=== PATIENT | male | born 1955 | race Caucasian/White ===

== ENCOUNTER → 2022-07-29 | Outpatient (CLI) | payer OTHER ==
[~2022-07-29] MED LIST: ASPI325 PO; ATEN50 PO; BUPR100ER PO; ESCI10 PO; FISH1000 PO; MULVITMIND PO; VITAMIN B-12 SL
[2022-07-29 11:46] LABS: BASOPHILS ABSOLUTE AUTO 0.06 K/mm3 (0.00-0.23); BASOPHILS PERCENT AUTO 1 % (0-2); EOSINOPHILS ABSOLUTE AUTO 0.15 K/mm3 (0.00-0.68); EOSINOPHILS PERCENT AUTO 3 % (0-6); Hematocrit 49.6 % (37.0-53.0); Hemoglobin 17.3 g/dL (13.5-17.5); IMMATURE GRAN ABSOLUTE AUTO 0.03 K/mm3 (0.00-0.10); IMMATURE GRAN PERCENT AUTO 1 % (0-1); LYMPHOCYTES PERCENT AUTO 28 % (21-46); MONOCYTES ABSOLUTE AUTO 0.42 K/mm3 (0.16-1.47); MONOCYTES PERCENT AUTO 7 % (4-13); Mean Corpuscular HGB 29.7 pg (26.0-34.0); Mean Corpuscular HGB Conc 34.9 g/dL (31.5-36.5); Mean Corpuscular Volume 85 fL (80-100); Mean Platelet Volume 9.7 fL (9.1-12.4); NEUTROPHILS ABSOLUTE AUTO 3.72 K/mm3 (1.96-9.15); NEUTROPHILS PERCENT AUTO 61 % (41-73); Platelet Count 206 K/mm3 (150-400); RDW Coefficient Variation 13.3 % (11.7-14.2); RDW Standard Deviation 41.3 fL (35.1-46.3); Red Blood Cell Count 5.83 M/mm3 (4.30-5.90); White Blood Cell Count 6.08 K/mm3 (4.00-11.30)
[2022-07-29 11:56] LABS: Albumin/Globulin Ratio 1.3 (0.8-1.8); Bilirubin, Total 0.6 mg/dL (0.1-1.0); Bun/Creatinine Ratio 11.2 (12.0-20.0); Calcium, Blood 9.7 mg/dL (8.5-10.1); Creatinine, Blood 0.98 mg/dL (0.60-1.20); Globulin, Blood 3.2 g/dL (2.2-4.0); Potassium, Blood 4.6 mmol/L (3.5-5.5); Total Protein, Blood 7.2 g/dL (6.4-8.2)
== END | disposition home or self-care (01) ==
LOC: LAB SHORT 11:40 → LAB 11:40
PROVIDERS: Physician Assistant Surgical
DX: R06.00 Dyspnea, unspecified (principal)
CPT/HCPCS: 80053; 83880; 85025

== ENCOUNTER 2022-12-29 11:02 | Inpatient (IN) | payer OTHER, MEDICARE ==
[2022-12-29] VITALS (11 sets, daily range): BP systolic 106–131; BP diastolic 67–95
[~2022-12-29] VITALS: Ht 185.4 cm; Wt 101.4 kg
[2022-12-29 11:41] LABS: BASOPHILS ABSOLUTE AUTO 0.04 K/mm3 (0.00-0.23); BASOPHILS PERCENT AUTO 1 % (0-2); EOSINOPHILS ABSOLUTE AUTO 0.08 K/mm3 (0.00-0.68); EOSINOPHILS PERCENT AUTO 2 % (0-6); Hematocrit 45.7 % (37.0-53.0); IMMATURE GRAN ABSOLUTE AUTO 0.07 K/mm3 (0.00-0.10); IMMATURE GRAN PERCENT AUTO 1 % (0-1); LYMPHOCYTES ABSOLUTE AUTO 1.01 K/mm3 (0.84-5.20); LYMPHOCYTES PERCENT AUTO 18 % (21-46); MONOCYTES ABSOLUTE AUTO 0.58 K/mm3 (0.16-1.47); MONOCYTES PERCENT AUTO 11 % (4-13); Mean Corpuscular HGB 26.6 pg (26.0-34.0); Mean Corpuscular HGB Conc 32.8 g/dL (31.5-36.5); Mean Corpuscular Volume 81 fL (80-100); Mean Platelet Volume 9.3 fL (9.1-12.4); NEUTROPHILS ABSOLUTE AUTO 3.71 K/mm3 (1.96-9.15); NEUTROPHILS PERCENT AUTO 68 % (41-73); Platelet Count 380 K/mm3 (150-400); RDW Coefficient Variation 14.3 % (11.7-14.2); RDW Standard Deviation 41.8 fL (35.1-46.3); Red Blood Cell Count 5.64 M/mm3 (4.30-5.90); White Blood Cell Count 5.49 K/mm3 (4.00-11.30)
[2022-12-29 12:44] LABS: Albumin, Blood 2.7 g/dL (3.4-5.0); Albumin/Globulin Ratio 0.6 (0.8-1.8); Bilirubin, Total 0.4 mg/dL (0.1-1.0); Bun/Creatinine Ratio 21.3 (12.0-20.0); Calcium, Blood 9.5 mg/dL (8.5-10.1); Creatinine, Blood 0.8 mg/dL (0.60-1.20); Globulin, Blood 4.2 g/dL (2.2-4.0); Potassium, Blood 4.4 mmol/L (3.5-5.5); Total Protein, Blood 6.9 g/dL (6.4-8.2)
[2022-12-29] MEDS ORDERED: ATOR10 PO (15:26)
[2022-12-29] MEDS ORDERED: Cyclobenzaprine10 MG PO (15:27)
[2022-12-29] MEDS ORDERED: DICLOFENAC SOD100 GM TOP (15:27)
[2022-12-29] MEDS ORDERED: FARXIGA10 MG PO (15:28)
[2022-12-29] MEDS ORDERED: GLIP10ER PO (15:28)
[2022-12-29] MEDS ORDERED: FENO160 PO (15:28)
[2022-12-29] MEDS ORDERED: METF500 PO (15:29)
[2022-12-29] MEDS ORDERED: LOSA25 PO (15:29)
[2022-12-29] MEDS ORDERED: TRULICITY4.5 MG/0.5 SC (15:30)
[2022-12-29] MEDS ORDERED: TOPROL XL200 MG PO (15:30)
[2022-12-29] MEDS ORDERED: XARELTO20 MG PO (15:30)
[2022-12-29] MEDS ORDERED: DULO60 PO (15:42)
--- NOTE | 2022-12-29 16:27 | NUR ---
PATIENT ARRIVES TO PCU AT 1600, ABLE TO STAND AND TRANSFER TO BED. PERRLA, GLASSES AT BEDSIDE. DENIES HEADACHE/VISION CHANGES. DENIES NUMBNESS/TINGLING. IND AT BASELINE. SBA TO BATHROOM. TELE SHOWING AFIB WITH HR 120-130'S. AMIO BOLUS COMPLETED UPON TRANSFER AND AMIO GTT STARTED ON PCU UNIT. BP STABLE WITH SBP 130'S. DENIES CHEST PAIN/PRESSURE/PALPITATIONS. PATIENT STATES HE LIVES IN AFIB, TAKES PO XARELTO AT HOME. HOME MED REC COMPLETE. PPP. ON ROOM AIR SATING 92-93%. LUNGS SOUNDING CLEAR AND DIM IN BASES. DENIES SOB/COUGH. EVEN AND UNLABORED RESPIRATIONS. PATIENT WEARS CPAP AT HOME. BOWEL TONES PRESENT. DENIES ABDOMINAL PAIN/NAUSEA. DENIES ISSUES WITH VOIDING. DRINKING WATER AT THIS TIME. SKIN OVERALL C/D/I. ORIENTED TO PCU AND CALL LIGHT. PATIENT DENIES NEEDS AT THIS TIME. DR. PETERSON NOTIFIED OF PATIENT ARRIVAL TO PCU.
--- NOTE | 2022-12-29 18:06 | NUR ---
SHIFT SUMMARY: PATIENT REMAINS IN AFIB WITH HR 110-130'S. AMIO GTT INFUSING PER EMAR. DENIES CHEST PAIN/PRESSURE/PALPITATIONS. REMAINS ON ROOM AIR. EATING AND VOIDING WNL. VITAL SIGNS STABLE. PATIENT EATING DINNER AT THIS TIME. COMPLAINS OF 5/10 CHRONIC BACK PAIN, RELIEVED WITH IV TORDAL. CALL LIGHT IN REACH. DENIES NEEDS AT THIS TIME.
--- NOTE | 2022-12-29 20:54 | NUR ---
ASSUMPTION OF CARE THIS RN ASSUMED CARE OF PATIENT AT 1900. PT A&O X4. ABLE TO MAKE NEEDS KNOWN. DENIES CHEST PAIN/PRESSURE AND SOB. AFIB WITH HR 120'S AT REST. AMIO GTT INFUSING PER EMAR. PT DENIED SOB BUT THIS RN NOTED PT ON RA WITH SPO2 85-88%. PT PLACED ON 2L VIA NC. PT REFUSED HOSPITAL CPAP AND STATES THAT HIS FRIEND WILL BRING HOME CPAP TOMORROW ALONG WITH HIS HOME MEDS. PT'S SPO2 92-94% ON 2L. BP STABLE. AFEBRILE. BED IN LOWEST POSITION AND CALL LIGHT WITHIN REACH.
[2022-12-30 03:00] VITALS: BP 114/90
[2022-12-30 03:58] LABS: BASOPHILS ABSOLUTE AUTO 0.04 K/mm3 (0.00-0.23); BASOPHILS PERCENT AUTO 1 % (0-2); EOSINOPHILS PERCENT AUTO 2 % (0-6); Hematocrit 42.8 % (37.0-53.0); Hemoglobin 13.8 g/dL (13.5-17.5); IMMATURE GRAN ABSOLUTE AUTO 0.09 K/mm3 (0.00-0.10); IMMATURE GRAN PERCENT AUTO 1 % (0-1); LYMPHOCYTES ABSOLUTE AUTO 0.91 K/mm3 (0.84-5.20); LYMPHOCYTES PERCENT AUTO 14 % (21-46); MONOCYTES ABSOLUTE AUTO 0.73 K/mm3 (0.16-1.47); MONOCYTES PERCENT AUTO 12 % (4-13); Mean Corpuscular HGB 26.1 pg (26.0-34.0); Mean Corpuscular HGB Conc 32.2 g/dL (31.5-36.5); Mean Corpuscular Volume 81 fL (80-100); Mean Platelet Volume 9.4 fL (9.1-12.4); NEUTROPHILS PERCENT AUTO 71 % (41-73); Platelet Count 316 K/mm3 (150-400); RDW Coefficient Variation 14.3 % (11.7-14.2); RDW Standard Deviation 41.4 fL (35.1-46.3); Red Blood Cell Count 5.29 M/mm3 (4.30-5.90); White Blood Cell Count 6.37 K/mm3 (4.00-11.30)
[2022-12-30 04:19] LABS: International Normalized Ratio 1.16; Prothrombin Time Results 12.1 Sec (9.7-11.5)
[2022-12-30 04:57] LABS: Albumin, Blood 2.5 g/dL (3.4-5.0); Albumin/Globulin Ratio 0.6 (0.8-1.8); Bilirubin, Total 0.5 mg/dL (0.1-1.0); Bun/Creatinine Ratio 22.8 (12.0-20.0); Calcium, Blood 9.1 mg/dL (8.5-10.1); Creatinine, Blood 0.75 mg/dL (0.60-1.20); Globulin, Blood 3.9 g/dL (2.2-4.0); Phosphorus, Blood 4.5 mg/dL (2.5-4.9); Potassium, Blood 3.9 mmol/L (3.5-5.5); Total Protein, Blood 6.4 g/dL (6.4-8.2)
--- NOTE | 2022-12-30 05:18 | NUR ---
SHIFT SUMMARY SEE PREVIOUS NOTE AND ASSESSMENT. PT A&O X4. ABLE TO MAKE NEEDS KNOWN. INDEPENDENT/SBA WITH ADL'S. PT CONTINUES TO BE IN AFIB WITH HR 110-130'S AT REST. AMIO GTT INFUSING PER EMAR. BP STABLE. AFEBRILE. ON 2L VIA NC WITH SPO2 >90%. BED IN LOWEST POSITION AND CALL LIGHT WITHIN REACH. THIS RN WILL REPORT TO ONCOMING DAYSHIFT RN.
[2022-12-30 07:57] VITALS: BP 129/85
[2022-12-30 11:47] VITALS: BP 119/81
[2022-12-30 16:04] VITALS: BP 120/87
--- NOTE | 2022-12-30 17:04 | NUR ---
SHIFT SUMMARY: PT ALERT AND ORIENTED X4, ABLE TO FOLLOW COMMANDS AND MAKE NEEDS KNOWN. COOPERATIVE WITH CARE. STRENGTH EQUAL BILATERALLY. BP STABLE. HR REMAINS AFIB 110'S. AMIO DRIP COMPLETED @1630, STARTED ON PO AMIO THIS AM, TOLERATING WELL. PT DENIES CP/PRESSURE. STATES SHORTNESS OF BREATH WITH EXCERTION. PULSES STRONG AND EQUAL THROUGHOUT. AFEBRILE. PT ON RA THROUGHOUT THIS SHIFT, SPO2 >98%. RESPIRATIONS EVEN AND UNLABORED AT REST. CBG RANGED 150-220, COVERED PER EMAR. MEDICATED X2 FOR CHRONIC HIP PAIN. PT ABLE TO SHOWER THIS AFTERNOON. BED IN LOW, CALL LIGHT IN REACH, WILL REPORT TO ONCOMING RN.
[2022-12-30 19:53] VITALS: BP 116/71
[2022-12-30 23:24] VITALS: BP 104/69
[2022-12-31 04:09] LABS: BASOPHILS ABSOLUTE AUTO 0.04 K/mm3 (0.00-0.23); BASOPHILS PERCENT AUTO 1 % (0-2); EOSINOPHILS ABSOLUTE AUTO 0.09 K/mm3 (0.00-0.68); EOSINOPHILS PERCENT AUTO 2 % (0-6); Hemoglobin 13.9 g/dL (13.5-17.5); IMMATURE GRAN ABSOLUTE AUTO 0.07 K/mm3 (0.00-0.10); IMMATURE GRAN PERCENT AUTO 1 % (0-1); LYMPHOCYTES ABSOLUTE AUTO 0.84 K/mm3 (0.84-5.20); LYMPHOCYTES PERCENT AUTO 15 % (21-46); MONOCYTES ABSOLUTE AUTO 0.69 K/mm3 (0.16-1.47); MONOCYTES PERCENT AUTO 12 % (4-13); Mean Corpuscular HGB 26.7 pg (26.0-34.0); Mean Corpuscular HGB Conc 33.1 g/dL (31.5-36.5); Mean Corpuscular Volume 81 fL (80-100); Mean Platelet Volume 8.9 fL (9.1-12.4); NEUTROPHILS ABSOLUTE AUTO 3.92 K/mm3 (1.96-9.15); NEUTROPHILS PERCENT AUTO 69 % (41-73); Platelet Count 336 K/mm3 (150-400); RDW Coefficient Variation 14.2 % (11.7-14.2); RDW Standard Deviation 41.5 fL (35.1-46.3); Red Blood Cell Count 5.21 M/mm3 (4.30-5.90); White Blood Cell Count 5.65 K/mm3 (4.00-11.30)
[2022-12-31 04:33] LABS: Albumin, Blood 2.5 g/dL (3.4-5.0); Anion Gap 6 mmol/L (6-16); Blood Urea Nitrogen 14 mg/dL (8-24); Bun/Creatinine Ratio 19.8 (12.0-20.0); CO2, Blood 30 mmol/L (21-32); Calcium, Blood 8.9 mg/dL (8.5-10.1); Chloride, Blood 100 mmol/L (98-108); Creatinine, Blood 0.71 mg/dL (0.60-1.20); Glomerular Filtration Rate 101 (60-); Glucose, Blood 208 mg/dL (70-99); Magnesium, Blood 1.9 mg/dL (1.6-2.4); Phosphorus, Blood 3.6 mg/dL (2.5-4.9); Potassium, Blood 4.3 mmol/L (3.5-5.5); Sodium, Blood 136 mmol/L (136-145)
[2022-12-31 04:38] VITALS: BP 123/80
--- NOTE | 2022-12-31 04:40 | NUR ---
SHIFT SUMMARY NO ACUTE CHANGES OVERNIGHT. PT MEDICATED WITH PO AMIO PER EMAR. AFIB WITH HR 100-120'S T/O THIS SHIFT. PT ON RA WHILE AWAKE. CPAP USED WHILE SLEEPING. OTHER VITALS STABLE. PT INDEPENDENT WITH ADL'S. NEURO WNL. MEDICATED PER EMAR FOR PAIN. PT EDUCATED ON MEDICATIONS AND PAIN MANAGEMENT D/T PT DISCLOSING TO THIS RN THAT HE WAS PREVIOUSLY ADDICTED TO "PILLS AND DRUGS" IN THE PAST. PT VERBALIZED UNDERSTANDING. CALLING APPROPRIATELY. BED IN LOWEST POSITION AND CALL LIGHT WITHIN REACH. THIS RN WILL REPORT TO ONCOMING DAYSHIFT RN.
[2022-12-31 08:20] VITALS: BP 115/90
[2022-12-31 12:05] VITALS: BP 105/76
--- NOTE | 2022-12-31 16:56 | NUR ---
SHIFT SUMMARY: PT REMAINS ALERT AND ORIENTED X4, COOPERATIVE WITH CARE. BP STABLE, AFEBRILE, SPO2 >98% ON ROOM AIR. RESPIRATIONS EVEN AND UNLBAORED. HR REMAINS AFIB 110-120'S. DENIES CP/PRESSURE. PO MEDICATIONS ADJUSTED THIS SHIFT, SEE EMAR. TOLERATED WELL. PT MEDICATED X4 FOR CHRONIC HIP/BACK PAIN. POSSIBLE CARDIOLOGY CONSULT IN AM PENDING PT HEART RATE. PT CURRENTLY SITTING IN SIDE OF BED WATCHING TV. BED IN LOW, CALL LIGHT IN REACH, WILL REPORT TO ONCOMING RN.
[2022-12-31 20:51] VITALS: BP 108/76
[2023-01-01 00:18] VITALS: BP 106/68
[2023-01-01 04:13] VITALS: BP 106/70
--- NOTE | 2023-01-01 05:03 | NUR ---
SHIFT SUMMARY NO ACUTE CHANGES OVERNIGHT. AFIB WITH HR 100-110'S T/O THIS SHIFT. BP STABLE. ON RA WITH SPO2 >90%; CPAP USED FOR NOC. PT INDEPENDENT WITH ADL'S. MEDICATING PER EMAR FOR PAIN. BED IN LOWEST POSITION AND CALL LIGHT WITHIN REACH. THIS RN WILL REPORT TO ONCOMING DAYSHIFT RN.
[2023-01-01 08:04] VITALS: BP 101/76
[2023-01-01 12:17] VITALS: BP 109/78
--- NOTE | 2023-01-01 17:36 | NUR ---
SHIFT SUMMARY: PT REMAINS ALERT AND ORIENTED X4, ABLE TO FOLLOW COMMANDS AND MAKE NEEDS KNOWN. COOPERATIVE WITH CARE. BP STABLE, AFEBRILE, SPO2 >98%. HR REMAINS AFIB 110'S. CARDIOLOGY IN THIS AFTERNOON, PLAN FOR MEDICAL MANAGMENT AT THIS TIME. SEE EMAR. PT AGREEABLE TO PLAN OF CARE. PT MEDICATED X3 FOR CHRONIC HIP/BACK PAIN. REMAINS IND IN ROOM. BED IN LOW, CALL LIGHT IN REACH, WILL REPORT TO ONCOMING RN.
[2023-01-01 18:43] VITALS: BP 113/72
[2023-01-01 20:13] VITALS: BP 105/81
[2023-01-02 00:04] VITALS: BP 111/69
[2023-01-02 05:14] VITALS: BP 124/79
--- NOTE | 2023-01-02 05:24 | NUR ---
SHIFT SUMMARY. SHIFT HAS BEEN MOSTLY UNREMARKABLE. PT AOX4, PLEASANT, COOPERATIVE WITH CARE. INDEPENDENT TRANSFER WITHIN ROOM. VITALS HAVE BEEN STABLE. PT SATS WELL ON ROOM AIR WHILE AWAKE AND WEARS BIPAP WHILE SLEEPING. PAIN HAS BEEN WELL MANAGED VIA PRN PAIN MEDS THUS FAR THIS SHIFT. CALLS APPROPRIATELY FOR ASSISTANCE. TELE ON, RUNNING AFIB WITH NO EVENTS THUS FAR. BED LOCKED IN LOWEST POSITION. CALL LIGHT LEFT WITHIN REACH.
[2023-01-02 07:27] VITALS: BP 120/78
[2023-01-02 08:57] LABS: BASOPHILS ABSOLUTE AUTO 0.04 K/mm3 (0.00-0.23); BASOPHILS PERCENT AUTO 1 % (0-2); EOSINOPHILS ABSOLUTE AUTO 0.13 K/mm3 (0.00-0.68); EOSINOPHILS PERCENT AUTO 2 % (0-6); Hematocrit 43.7 % (37.0-53.0); Hemoglobin 14.3 g/dL (13.5-17.5); IMMATURE GRAN ABSOLUTE AUTO 0.12 K/mm3 (0.00-0.10); IMMATURE GRAN PERCENT AUTO 2 % (0-1); LYMPHOCYTES ABSOLUTE AUTO 1.07 K/mm3 (0.84-5.20); LYMPHOCYTES PERCENT AUTO 16 % (21-46); MONOCYTES ABSOLUTE AUTO 0.65 K/mm3 (0.16-1.47); MONOCYTES PERCENT AUTO 10 % (4-13); Mean Corpuscular HGB 26.6 pg (26.0-34.0); Mean Corpuscular HGB Conc 32.7 g/dL (31.5-36.5); Mean Corpuscular Volume 81 fL (80-100); Mean Platelet Volume 9.2 fL (9.1-12.4); NEUTROPHILS PERCENT AUTO 69 % (41-73); Platelet Count 386 K/mm3 (150-400); RDW Coefficient Variation 14.5 % (11.7-14.2); RDW Standard Deviation 42.1 fL (35.1-46.3); Red Blood Cell Count 5.38 M/mm3 (4.30-5.90); White Blood Cell Count 6.51 K/mm3 (4.00-11.30)
[2023-01-02 09:16] LABS: Bun/Creatinine Ratio 26.6 (12.0-20.0); Calcium, Blood 9.1 mg/dL (8.5-10.1); Creatinine, Blood 0.56 mg/dL (0.60-1.20); Magnesium, Blood 1.9 mg/dL (1.6-2.4); Potassium, Blood 4.6 mmol/L (3.5-5.5)
--- NOTE | 2023-01-02 11:00 | NUR ---
AM NOTE: PT HAS BEEN ALERT AND ORIENTED X4, INDEPENDENT IN THE ROOM. VITALS HRR AFIB 90-115 PT STARTED ON PO DIGOXIN THIS MORNING, SBP 120'S, SATS ABOVE 92% ON RA, AFEBRILE. DR MURRAY CAME BY TO SEE PT THIS MORNING, RECOMMENDED TO HAVE PT AMBULATE AROUND THE UNIT TO MAKE SURE HRR SUSTAINS IN THE 90 TO LOW 100'S. PT HAD A SHOWER AFTER BREAKFAST, MEDICATED FOR R HIP PAIN 05/23 1 TAB NORCO WAS GIVEN. PT WAS ASKED TO AMBULATE AROUND THE UNIT, PT TOLERATED WELL HRR STAYED ON THE 90-110'S, PT HAS SOME MILD SOB UPON GETTING BACK IN THE ROOM AND SOME LIGHT HEADEDNESS. DR MURRAY CALLED AND MADE AWARE PLANNED TO DC PT TODAY. DR MURRAY WAS ASKED TO COME SEE PT PER PT'S REQUESTS FOR SOME ISSUES AND QUESTIONS, FAR NOT BEING STRONG ENOUGH TO DO ADL'S DR MURRAY ORDERED PT ORDERS TO EVAL AND TREAT. THIS RN OFFERED TO DO ANOTHER ROUND OF WALKING AROUND THE UNIT PT WAS AGREEABLE, NO OTHER ISSUES OR CONCERNS AT THIS TIME WILL MONITOR
[2023-01-02 11:29] VITALS: BP 125/83
[2023-01-02] MEDS ORDERED: AMIODARONE HCL400 M2 PO ×3 (13:23→13:29)
[2023-01-02] MEDS ORDERED: Amiodarone HCl200 MG PO (13:25)
[2023-01-02] MEDS ORDERED: DIGOX125 MC1 PO (13:31)
--- NOTE | 2023-01-02 13:45 | NUR ---
SUICIDE ISSUES NOTE: THIS RN CALLED DR MURRAY AGAIN TO ADDRESS PT'S CONCERN OF NOT READY FOR DISCHARGE YET AFTER THIS RN DISCUSS PLAN FOR DISCHARGE AND ASKED TO COME TALK TO THE PT AND ALSO SISTER AT THE BEDSIDE WHO HAS THE SAME CONCERN DR MURRAY STATED HE WILL CALL THE PT. THIS RN WAS ON LUNCH CALLED VIA [employer] BY DR MURRAY LETTING THIS NURSE KNOW THAT THIS PT IS NOT BEING DISCHARGE AND WILL BE PLACED ON SUICIDAL PRECUATION AND HAVE PSYCH CONSULT. PT TOLD THE PROVIDER HE WAS GOING TO SHOOT HIMSELF WITH A GUN. THIS RN MADE THE CHARGE NURSE AWARE AND WENT BACK TO THE FLOOR. PT WAS ALREADY DRESSED AND READY TO DISCHARGE, INSTRUMENT WORKER CAME WELL. PT WAS INFORMED THAT HE'S GOING TO STAY ANOTHER NIGHT PT GOT AGITATED WANTING TO LEAVE AT THAT TIME. PT STATED "NO IM READY TO GO HOME, HE CALLED ME ON MY PHONE 15 MINS AGO AND HE WANTS ME TO DISCHARGE." PT EXPRESSES HE'S CONCERN OF NOT BEING HEARD HAVING THIS CHRONIC PAIN THAT MADE HIM TAKE IBUPROFEN AND TYLENOL. PT WAS GIVEN A LOT OF EDUCATION AND ENCOURAGEMENT. PT ALSO ADDRESS THAT HE NEEDS HELP AT HOME, CARE MANAGEMENT WAS CONSULTED AND WAS ABLE TO HAVE DISCUSSION WITH THE PT. PT CALMED DOWN NOW, ROOM MITIGATED. DR VELASCO IN THE RIGHT NOW TALKING TO THE PT. WILL CONTINUE TO MONITOR
--- NOTE | 2023-01-02 14:18 | NUR ---
DR VELASCO GOT DONE TLAKING TO THE PT, PT DOES NOT NEED TO BE ON MD HOLD AND SUICIDE PRECAUTION. PREFITTER DOORS LET THIS RN KNOW THAT PT STILL GOOD FOR DISCHARGE. PT AGREEABLE WITH THE PLAN. AWAITING FOR DISCHARGE ORDERS TO BE DONE.
[2023-01-02] MEDS ORDERED: TOPROL XL200 MG PO (14:35)
--- NOTE | 2023-01-02 14:54 | NUR ---
PT DISCHARGED TO HOME TODAY WITH DISCHARGE ORDERS. PT HAD A 1;1 SITTER AT ALL TIMES SINCE SUICIDE PRECAUTION WAS ORDERED, DR VELASCO WAS ABLE TO COME SEE THE PT AND CLEARED FOR SUICIDE PRECAUTION. PT WITH NO PLANS OF HARMING HIMSELF AT THIS TIME. PT WAS AGREEABLE WITH THE DISCHARGE PLAN, PRESCRIPTION SENT TO [facility]. AMIODARONE 1400PM DOSE WAS GIVEN. ALL NEW MEDICATIONS AND DISCHARGE INSTRUCTIONS DISCLOSED WITH THE PT, PT ACCOMPANIED BY WHEELCHAIR FOR DISCHARGE ALL BELONGINGS SENT WITH THE PT.
== END 2023-01-02 14:50 | disposition home or self-care (01) | DRG 310 ==
LOC: ER 11:02 → PCU 11:03
PROVIDERS: Internal Medicine; Physician Assistant; ADMIT Family Medicine
PROC: 5A09357 Assistance with Respiratory Ventilation, Less than 24 Consecutive Hours, Continuous Positive Airway Pressure (ICD-10-PCS; principal; 2022-12-29)
DX: I48.21 Permanent atrial fibrillation (principal); I10 Essential (primary) hypertension; G47.33 Obstructive sleep apnea (adult) (pediatric); G89.29 Other chronic pain; E11.9 Type 2 diabetes mellitus without complications; I48.20 Chronic atrial fibrillation, unspecified; R74.01 Elevation of levels of liver transaminase levels; E78.5 Hyperlipidemia, unspecified; M54.50 Low back pain, unspecified; E66.3 Overweight; F32.A Depression, unspecified; Z90.49 Acquired absence of other specified parts of digestive tract; Z98.890 Other specified postprocedural states; Z79.82 Long term (current) use of aspirin; Z79.899 Other long term (current) drug therapy; Z88.8 Allergy status to other drugs, medicaments and biological substances; Z79.84 Long term (current) use of oral hypoglycemic drugs; Z68.29 Body mass index [BMI] 29.0-29.9, adult
CPT/HCPCS: 36415; 71045; 80048; 80053; 80069; 82947; 83735; 83880; 84100; 84484; 85025; 85610; 93005; 93010; 93306; 94660; 94762; 96365; 96366; 96376; 99285-25; A9270; J0282; J1160; J1885; J7060

== ENCOUNTER 2023-01-31 15:56 | Inpatient (IN) | payer OTHER, MEDICARE ==
[~2023-01-31] VITALS: Ht 185.4 cm; Wt 91.8 kg
[~2023-01-31 15:56] MED LIST changes: +AMIODARONE HCL400 M2 PO; +ATOR10 PO; +Amiodarone HCl200 MG PO; +Cyclobenzaprine10 MG PO; +DICLOFENAC SOD100 GM TOP; +DIGOX125 MC1 PO; +DULO60 PO; +FARXIGA10 MG PO; +FENO160 PO; +GLIP10ER PO; +LOSA25 PO; +METF500 PO; +TOPROL XL200 MG PO; +TRULICITY4.5 MG/0.5 SC; +XARELTO20 MG PO
[2023-01-31 16:59] LABS: BASOPHILS ABSOLUTE AUTO 0.05 K/mm3 (0.00-0.23); BASOPHILS PERCENT AUTO 1 % (0-2); EOSINOPHILS ABSOLUTE AUTO 0.07 K/mm3 (0.00-0.68); EOSINOPHILS PERCENT AUTO 1 % (0-6); Hematocrit 37.3 % (37.0-53.0); Hemoglobin 11.9 g/dL (13.5-17.5); IMMATURE GRAN ABSOLUTE AUTO 0.42 K/mm3 (0.00-0.10); IMMATURE GRAN PERCENT AUTO 5 % (0-1); LYMPHOCYTES ABSOLUTE AUTO 1.12 K/mm3 (0.84-5.20); LYMPHOCYTES PERCENT AUTO 14 % (21-46); MONOCYTES PERCENT AUTO 10 % (4-13); Mean Corpuscular HGB 25.9 pg (26.0-34.0); Mean Corpuscular HGB Conc 31.9 g/dL (31.5-36.5); Mean Corpuscular Volume 81 fL (80-100); Mean Platelet Volume 9.1 fL (9.1-12.4); NEUTROPHILS ABSOLUTE AUTO 5.46 K/mm3 (1.96-9.15); NEUTROPHILS PERCENT AUTO 69 % (41-73); NRBC ABSOLUTE 0.05 K/mm3 (0.00-0.02); NRBC Auto 0.6 /100 WBC (0.0-0.2); Platelet Count 391 K/mm3 (150-400); RDW Coefficient Variation 17.4 % (11.7-14.2); Red Blood Cell Count 4.59 M/mm3 (4.30-5.90); White Blood Cell Count 7.92 K/mm3 (4.00-11.30)
[2023-01-31 17:39] LABS: Albumin, Blood 1.5 g/dL (3.4-5.0); Albumin/Globulin Ratio 0.4 (0.8-1.8); Bilirubin, Total 0.8 mg/dL (0.1-1.0); Bun/Creatinine Ratio 38.5 (12.0-20.0); Calcium, Blood 7.5 mg/dL (8.5-10.1); Creatinine, Blood 0.42 mg/dL (0.60-1.20); Globulin, Blood 4.1 g/dL (2.2-4.0); Potassium, Blood 4.9 mmol/L (3.5-5.5); Total Protein, Blood 5.6 g/dL (6.4-8.2)
[2023-01-31 18:41] LABS: Base Excess Venous -6.7 mmol/L; Bicarbonate Venous 19.6 mmol/L (24.0-30.0); PCO2 Venous 33.7 mmHg (38-42); pH Blood Venous 7.36 (7.34-7.37)
[2023-01-31 19:20] LABS: Influenza A, PCR NEGATIVE (NEGATIVE); Influenza B, PCR NEGATIVE (NEGATIVE); Resp Syncytial Virus, PCR NEGATIVE (NEGATIVE); SARS-Cov-2 (COVID-19) PCR, MMC NEGATIVE (NEGATIVE)
[2023-01-31 21:15] VITALS: BP 106/68
[2023-01-31] MEDS ORDERED: SPIR25 PO (21:22)
[2023-01-31 23:24] VITALS: BP 95/68
--- NOTE | 2023-01-31 23:38 | NUR ---
ARRIVAL TO PCU PT ARRIVED TO U6 AT 2109 VIA GURNEY. REPORT TAKEN FROM KINSEY RN, THIS RN TO ASSUME CARE. PT ALERT, ORIENTED X4 ON ARRIVAL. ABLE TO STAND AND TAKE SEVERAL STEPS TO TRANSFER TO BED. HR 110-120'S, AFIB ON TELE. HR UP TO 130'S W/ MOVEMENT. BP STABLE, DENIES CHEST PAIN/PRESSURE. SPO2 >92% ON 4L VIA NC; HOME CPAP IN BAG ON ARRIVAL. RT TO BEDSIDE TO SET UP HOME CPAP. DYSPNEA NOTED W/ EXERTION. AFEBRILE. PT ORIENTED TO ROOM/UNIT/CALL LIGHT. EDUCATED ON NON-SMOKING POLICY AND RISKS ASSOCIATED W/ IGNITION SOURCES; PT DENIES BEING A SMOKER, NO IGNITION SOURCES PRESENT IN ROOM AT TIME OF ADMISSION. CALL LIGHT WITHIN REACH, BED IN LOWEST POSITION. NO FURTHER NEEDS AT THIS TIME.
[2023-02-01] VITALS (8 sets, daily range): BP systolic 92–118; BP diastolic 65–78
[2023-02-01 04:11] LABS: Hematocrit 39.9 % (37.0-53.0); Hemoglobin 12.7 g/dL (13.5-17.5); Mean Corpuscular HGB 25.5 pg (26.0-34.0); Mean Corpuscular HGB Conc 31.8 g/dL (31.5-36.5); Mean Corpuscular Volume 80 fL (80-100); Mean Platelet Volume 8.8 fL (9.1-12.4); NRBC ABSOLUTE 0.04 K/mm3 (0.00-0.02); NRBC Auto 0.5 /100 WBC (0.0-0.2); Platelet Count 456 K/mm3 (150-400); RDW Coefficient Variation 17.7 % (11.7-14.2); RDW Standard Deviation 48.3 fL (35.1-46.3); Red Blood Cell Count 4.98 M/mm3 (4.30-5.90); White Blood Cell Count 8.03 K/mm3 (4.00-11.30)
[2023-02-01 04:41] LABS: Bun/Creatinine Ratio 29.7 (12.0-20.0); Calcium, Blood 8.2 mg/dL (8.5-10.1); Creatinine, Blood 0.54 mg/dL (0.60-1.20); Magnesium, Blood 1.9 mg/dL (1.6-2.4); Potassium, Blood 4.7 mmol/L (3.5-5.5); Thyroid Stimulating Hormone 2.73 uIU/mL (0.360-4.800)
--- NOTE | 2023-02-01 05:04 | NUR ---
FAMILY UPDATE ROSA ISELA, PT'S SISTER, CALLED FOR AN UPDATE. PT HAS CONSENTED TO RELEASE OF INFORMATION TO ROSA ISELA. UPDATE PROVIDED ON PT CONDITION INCLUDING CURRENT HR, O2 DEMAND, AND OVERALL CONDITION. ROSA ISELA VOICED THAT THE PT HAD WANTED TO BE TRANSFERRED TO THE "[facility]" BUT THAT SHE FELT HE NEEDED TO BE STABILIZED HERE RATHER THAN TAKING HIM TO THE ED THERE FIRST. DISCUSSED THAT PHYSICIAN WILL ROUND AND DISCUSS PLANS/GOALS OF CARE. ROSA ISELA STATES THAT SHE PLANS TO COME IN THIS AM TO BE HERE TO FIGURE OUT THE BEST PLAN FOR THE PT. ROSA ISELA CAN BE REACHED AT [phone].
--- NOTE | 2023-02-01 05:07 | NUR ---
END OF SHIFT NOTE: PT REMAINS ALERT, ORIENTED X4. ABLE TO CALL APPROPRIATELY AND COMMUNICATE NEEDS W/ STAFF. VSS. HR 110-120'S, AFIB ON TELE. HR UP TO 130'S W/ EXERTION. SBP 90-110'S, MAP >65. PT DENIES CHEST PAIN/PRESSURE. SPO2 90% OR GREATER ON 4L VIA NC. HOME CPAP DIFFICULTIES, RT BROUGHT HOSPITAL CPAP INTO ROOM FOR THE NIGHT. 4L BLEED IN ON CPAP. AFEBRILE. C/O MODERATE LOW BACK PAIN, MEDICATED PER EMAR. ABLE TO TRANSFER TO RESTROOM W/ SBA FOR LINE MANAGEMENT; INDEPENDENTLY ABLE TO VOID IN URINAL. TOLERATING PO INTAKE WELL. PT REPOSITIONING SELF IN BED AND ADJUSTING HOB INDEPENDENTLY. NO OTHER NEEDS AT THIS TIME. CALL LIGHT WITHIN REACH, BED IN LOWEST POSITION. WILL REPORT TO ONCOMING RN.
--- NOTE | 2023-02-01 06:15 | NUR ---
UPDATE DULITE MACHINE BLUER NOTIFIED THIS RN OF PT'S HR TOUCHING 140-150'S, SUSTAINING 130'S. THIS RN TO PT'S ROOM. PT SITTING ON EDGE OF THE BED, REPORTS THAT HIS HEART "FEELS LIKE IT'S GOING REALLY FAST." DENIES CHEST PAIN/PRESSURE. 5MG PRN LOPRESSOR ADMINISTERED PER EMAR. HR SUSTAINING 110'S AT THIS TIME.
--- NOTE | 2023-02-01 18:13 | NUR ---
PT SUMMARY: PT ALERT AND ORIENTED X4, ABLE TO MAKE NEEDS KNOWN, VITALS HRR AFIB 110-120'S AT REST INCREASES UP TO 140'S WITH EXERTION PT SYMPTOMATIC WITH WEAKNESS AND SOB. PT ON 4L OF O2 SATS ABOVE 95% SBP SOFT 90-115'S MAP >65, AFEBRILE. PT AMBULATING SBA TO THE BATHROOM VIA WALKER. DR ST CONSULTED ON PT'S CASE, MEDICATION CHANGES METOPROLOL INCREASED TO 150MG BID AND LASIX 80 MG BID. ALSO HAD DISCUSSION REGARDING CARDIAC ABLATION AND GETTING A PACEMAKER. PT AGREEABLE WITH THE PLANS. PT MEDICATED TWICE FOR LOWER BACK, SHOULDER AND HIP PAIN. SISTER CAME IN A COUPLE TIMES TO VISIT PT AWARE OF THE PLANS WELL. PT WITH GREAT APPETITE. NO OTHER ISSUES REPORTED FOR THE SHIFT. PT HAS BEEN CALLING APPROPRIATELY, WILL REPORT TO ONCOMING SHIFT
[2023-02-02] VITALS (7 sets, daily range): BP systolic 89–110; BP diastolic 55–72
[2023-02-02 04:11] LABS: BASOPHILS ABSOLUTE AUTO 0.05 K/mm3 (0.00-0.23); BASOPHILS PERCENT AUTO 1 % (0-2); EOSINOPHILS ABSOLUTE AUTO 0.17 K/mm3 (0.00-0.68); EOSINOPHILS PERCENT AUTO 3 % (0-6); Hematocrit 38.4 % (37.0-53.0); Hemoglobin 12.5 g/dL (13.5-17.5); IMMATURE GRAN ABSOLUTE AUTO 0.25 K/mm3 (0.00-0.10); IMMATURE GRAN PERCENT AUTO 4 % (0-1); LYMPHOCYTES ABSOLUTE AUTO 0.86 K/mm3 (0.84-5.20); LYMPHOCYTES PERCENT AUTO 14 % (21-46); MONOCYTES ABSOLUTE AUTO 0.55 K/mm3 (0.16-1.47); MONOCYTES PERCENT AUTO 9 % (4-13); Mean Corpuscular HGB 25.9 pg (26.0-34.0); Mean Corpuscular HGB Conc 32.6 g/dL (31.5-36.5); Mean Corpuscular Volume 80 fL (80-100); Mean Platelet Volume 8.6 fL (9.1-12.4); NEUTROPHILS ABSOLUTE AUTO 4.15 K/mm3 (1.96-9.15); NEUTROPHILS PERCENT AUTO 69 % (41-73); NRBC ABSOLUTE 0.05 K/mm3 (0.00-0.02); NRBC Auto 0.8 /100 WBC (0.0-0.2); Platelet Count 405 K/mm3 (150-400); RDW Coefficient Variation 17.8 % (11.7-14.2); RDW Standard Deviation 47.8 fL (35.1-46.3); Red Blood Cell Count 4.83 M/mm3 (4.30-5.90); White Blood Cell Count 6.03 K/mm3 (4.00-11.30)
[2023-02-02 05:09] LABS: Albumin, Blood 1.7 g/dL (3.4-5.0); Albumin/Globulin Ratio 0.4 (0.8-1.8); Bilirubin, Total 0.5 mg/dL (0.1-1.0); Bun/Creatinine Ratio 30.1 (12.0-20.0); Calcium, Blood 8.6 mg/dL (8.5-10.1); Creatinine, Blood 0.5 mg/dL (0.60-1.20); Globulin, Blood 4.1 g/dL (2.2-4.0); Potassium, Blood 3.7 mmol/L (3.5-5.5); Total Protein, Blood 5.8 g/dL (6.4-8.2)
--- NOTE | 2023-02-02 06:22 | NUR ---
SHIFT SUMMARY PATIENT ALERT AND ORIENTED X4. MEDICATED PER EMAR FOR BACK PAIN. ON 4 LITERS O2 VIA NC WITH SPO2 AT 95. DENIES CHEST PAIN AND SHORTNESS OF BREATH. VITAL SIGNS STABLE, AFIB 100-120'S. NO ACUTE ISSUES NOTED OVERNIGHT. WILL CONTINUE TO MONITOR. CALL LIGHT WITHIN REACH.
--- NOTE | 2023-02-02 11:00 | NUR ---
care assumption this rn assumed care at 0700. vital signs stable. tele afib 100-130s. spo2 >90% on room air to 2l nc. patient has sleep apnea and uses cpap at night. baseline room air. patient bilateral lobes have fine crackles, upper bilateral lobes clear. patient has a weak nonproductive moist cough occasionally. patient reports shortness of breath with exertion. patient reports no chest pain/pressure. patient reports pain in back and rates it at a 8, on a scale of 0-10 with 10 being the worst pain. patient upon reassessment stated pain level at 6. patient is alert and oriented x4. perrla. patient is able to make needs knonw and uses call light approrpiately. see shift assessment for further detials. md parker in to see patient and discussed plan of care. md morelos in to see patient and disucssed plan of care. plan of care is up to date.
--- NOTE | 2023-02-02 18:49 | NUR ---
SHIFT SUMMARY patient neuro remains unchanged. vital signs stable. patient uses call light to make needs known. patient heart rate in the 120s currently and will receive evening dose of metoprolol. patient reports pain off and on throughout the shift in his back. no acute changes. plan of care remains up to date.
[2023-02-03 03:59] LABS: BASOPHILS ABSOLUTE AUTO 0.04 K/mm3 (0.00-0.23); BASOPHILS PERCENT AUTO 1 % (0-2); EOSINOPHILS PERCENT AUTO 2 % (0-6); Hematocrit 39.2 % (37.0-53.0); Hemoglobin 12.7 g/dL (13.5-17.5); IMMATURE GRAN ABSOLUTE AUTO 0.26 K/mm3 (0.00-0.10); IMMATURE GRAN PERCENT AUTO 5 % (0-1); LYMPHOCYTES ABSOLUTE AUTO 0.82 K/mm3 (0.84-5.20); LYMPHOCYTES PERCENT AUTO 14 % (21-46); MONOCYTES ABSOLUTE AUTO 0.54 K/mm3 (0.16-1.47); MONOCYTES PERCENT AUTO 10 % (4-13); Mean Corpuscular HGB 25.9 pg (26.0-34.0); Mean Corpuscular HGB Conc 32.4 g/dL (31.5-36.5); Mean Corpuscular Volume 80 fL (80-100); Mean Platelet Volume 8.7 fL (9.1-12.4); NEUTROPHILS ABSOLUTE AUTO 3.95 K/mm3 (1.96-9.15); NEUTROPHILS PERCENT AUTO 69 % (41-73); NRBC ABSOLUTE 0.04 K/mm3 (0.00-0.02); NRBC Auto 0.7 /100 WBC (0.0-0.2); Platelet Count 356 K/mm3 (150-400); RDW Coefficient Variation 17.5 % (11.7-14.2); RDW Standard Deviation 47.7 fL (35.1-46.3); Red Blood Cell Count 4.91 M/mm3 (4.30-5.90); White Blood Cell Count 5.71 K/mm3 (4.00-11.30)
[2023-02-03 05:03] VITALS: BP 102/72
[2023-02-03 05:33] LABS: Albumin, Blood 1.8 g/dL (3.4-5.0); Albumin/Globulin Ratio 0.5 (0.8-1.8); Bilirubin, Total 0.5 mg/dL (0.1-1.0); Bun/Creatinine Ratio 34.7 (12.0-20.0); Calcium, Blood 8.6 mg/dL (8.5-10.1); Creatinine, Blood 0.55 mg/dL (0.60-1.20); Globulin, Blood 3.8 g/dL (2.2-4.0); Potassium, Blood 3.6 mmol/L (3.5-5.5); Total Protein, Blood 5.6 g/dL (6.4-8.2)
--- NOTE | 2023-02-03 06:11 | NUR ---
SHIFT SUMMARY PATIENT ALERT AND ORIENTED X4. MEDICATED PER EMAR FOR PAIN. HAD NO COMPLAINTS OF CHEST PAIN OR SHORTNESS OF BREATH. ON 2 LITERS O2 WHILE AWAKE, WORE CPAP WHILE SLEEPING WITH SPO2 >90%. VITAL SIGNS STABLE, AFIB 110'S-120'S ON TELE. NO ACUTE ISSUES NOTED OVERNIGHT. WILL CONTINUE TO MONITOR. CALL LIGHT WITHIN REACH.
[2023-02-03 08:18] VITALS: BP 92/59
--- NOTE | 2023-02-03 10:39 | NUR ---
CARE ASSUMPTION this rn assumed care at 0700. blood pressure soft, systolic in the 90s, map >65. this rn gave morning metoprolol and was within parameters. this rn held the lasix due to blood pressure and patient being symptomatic. patient is alert and oriented x4. perrla. patient reports back pain and hip pain, medicated per emar. see shift assessment for further detials. md ojeda into room and discussed abd ultrasound results and that their is cancerous masses in the patients liver. md ojeda discussed that reason for the ct of the abd chest and pelvis. plan of care up to date
--- NOTE | 2023-02-03 11:00 | NUR ---
refferal to ocnology primer charger amy called oncologiest office and aware of patient and will be touching base with md ojeda
--- NOTE | 2023-02-03 11:00 | NUR ---
md tamy morelos in room and wants patient to receive morning lasix.
[2023-02-03 11:08] VITALS: BP 106/73
[2023-02-03 13:27] LABS: Prostate Specific Antigen 0.853 ng/mL (0.000-4.000)
[2023-02-03 13:53] LABS: Alpha Feto Protein, Tumor Mkr 2.5 ng/mL (0.0-8.0); Cancer Antigen 125 436.8 U/mL (1.5-35.0)
--- NOTE | 2023-02-03 14:29 | NUR ---
"Spiritual Care | Nurse/Friend request Pt. is sitting up on the side of his bed and welcomes my visit. Attending nurse had informed me that the Pt. had just recieved a new cancer diagnosis. Pt. welcomes my visit, and had a friend at bedside. Facilitated a conversation regarding the pts. diagnosis and how he is responding to it. Pt. displayed evidence of authentic emotion as the most recent diagnosis was still knoew. Pt. verbalized words of both shock and trust. Pt. verbalized that he had received good spiritual care during previous visits from chaplain Doan. Prayed with Pt. Pt. verbalized gratitude for the spiritual care visit."
[2023-02-03 16:26] VITALS: BP 99/75
--- NOTE | 2023-02-03 17:37 | NUR ---
shift summary see previous notes. patient has been off and on tearful today due to news of new cancer diagnosis. md roberson in to see patient this evening and discussed having a biopsy done to determine the orgin of the cancer. md roberson discussed both treatment options depending which type of cancer it is. patient had friend at bedside for this. patient verbalized understanding. plan is for patient to see md as an out patient after the first of the year. oral steriods order per md to see if this will help with patient skeletal pain. see orders. no acute changes otherwise. plan of care is up to date at this time.
[2023-02-03 21:06] VITALS: BP 102/69
[2023-02-04] VITALS (8 sets, daily range): BP systolic 90–139; BP diastolic 53–111
[2023-02-04 04:22] LABS: BASOPHILS ABSOLUTE AUTO 0.05 K/mm3 (0.00-0.23); BASOPHILS PERCENT AUTO 1 % (0-2); EOSINOPHILS ABSOLUTE AUTO 0.02 K/mm3 (0.00-0.68); EOSINOPHILS PERCENT AUTO 0 % (0-6); Hematocrit 41.3 % (37.0-53.0); Hemoglobin 13.4 g/dL (13.5-17.5); IMMATURE GRAN ABSOLUTE AUTO 0.29 K/mm3 (0.00-0.10); IMMATURE GRAN PERCENT AUTO 4 % (0-1); LYMPHOCYTES ABSOLUTE AUTO 0.79 K/mm3 (0.84-5.20); LYMPHOCYTES PERCENT AUTO 11 % (21-46); MONOCYTES PERCENT AUTO 9 % (4-13); Mean Corpuscular HGB 25.7 pg (26.0-34.0); Mean Corpuscular HGB Conc 32.4 g/dL (31.5-36.5); Mean Corpuscular Volume 79 fL (80-100); Mean Platelet Volume 8.9 fL (9.1-12.4); NEUTROPHILS ABSOLUTE AUTO 5.69 K/mm3 (1.96-9.15); NEUTROPHILS PERCENT AUTO 75 % (41-73); NRBC ABSOLUTE 0.02 K/mm3 (0.00-0.02); NRBC Auto 0.3 /100 WBC (0.0-0.2); Platelet Count 356 K/mm3 (150-400); RDW Coefficient Variation 17.8 % (11.7-14.2); RDW Standard Deviation 46.9 fL (35.1-46.3); Red Blood Cell Count 5.21 M/mm3 (4.30-5.90); White Blood Cell Count 7.54 K/mm3 (4.00-11.30)
--- NOTE | 2023-02-04 04:37 | NUR ---
SHIFT SUMMARY: A&OX4. COMPLAINING OF GENERLIZED PAIN DURING THIS SHIFT VARYING BETWEEN 4-7. MEDICATED WITH PRN PO PAIN MEDS WITH MILD IMPROVEMENT. DR. DAIGLE CALLED AND REQUESTED ORDERS FOR BREAKTHROUGH PAIN, ORDERS RECEIVED. HR REMAINS A-FIB IN 110-120'S. DENIES CHEST PAIN/PRESSURE. BP'S REMAIN SOFT WITH MAP > 65. DENIES DIZZIENESS/LIGHTHEADEDNESS WHEN UP. SOB REMAINS UNCHAGED PER PT REPORT WITH O2 SATS MAINTAINING > 90% ON 2 LPM VIA NC WHILE AWAKE AND CPAP WITH 2 LPM BLEEP IN WHILE SLEEPING. COMPLAINT WITH FLUID RESTRICTIONS. CALL LIGHT IN REACH. BED IN LOW POSITION.
[2023-02-04 04:51] LABS: Albumin, Blood 1.8 g/dL (3.4-5.0); Albumin/Globulin Ratio 0.4 (0.8-1.8); Bilirubin, Total 0.5 mg/dL (0.1-1.0); Bun/Creatinine Ratio 46.3 (12.0-20.0); Calcium, Blood 8.3 mg/dL (8.5-10.1); Creatinine, Blood 0.43 mg/dL (0.60-1.20); Globulin, Blood 4.2 g/dL (2.2-4.0); Potassium, Blood 3.6 mmol/L (3.5-5.5)
[2023-02-04 13:22] LABS: International Normalized Ratio 1.2; Prothrombin Time Results 12.5 Sec (9.7-11.5)
[2023-02-04 13:27] LABS: Total Protein, Blood 6.3 g/dL (6.4-8.2)
--- NOTE | 2023-02-04 17:56 | NUR ---
SHIFT SUMMARY PT A&OX4. SP02>90% ON 2L NC. DESATS TO MID 80'S WHEN SLEEPING AND NOT WEARING CPAP. DIFFICULT TO GET STEADY PLEATH WITH 02 MONITOR. TELEMETRY SHOWS AFIB, HR 110'S-130'S. PT C/O OF 7/10 GENERAL PAIN. STATES DUILADID WORKED WELL PREVIOUS SHIFT. MD GRAMAJO W/ ORDERS FOR MS CONTIN, SEE EMAR. PT USED URINAL TO VOID, RECEIVING DIURETICS. MD GRAMAJO W/ ORDERS FOR THORACENTSIS. CALL PLACED TO IMAGING. IMAGING STATES RADIOLOGIST NOT ABLE TO COME IN TODAY BUT ABLE TO 02/05. COAG LABS DRAWN, SEE RESULT. FAMILY IN ROOM THIS SHIFT. PT CURRENTLY SITTING ON EDGE OF BED, EATING DINNER. CALL LIGHT IN REACH.
[2023-02-05] VITALS (8 sets, daily range): BP systolic 92–158; BP diastolic 61–85
[2023-02-05 04:42] LABS: BASOPHILS ABSOLUTE AUTO 0.03 K/mm3 (0.00-0.23); BASOPHILS PERCENT AUTO 0 % (0-2); EOSINOPHILS ABSOLUTE AUTO 0.01 K/mm3 (0.00-0.68); EOSINOPHILS PERCENT AUTO 0 % (0-6); Hematocrit 40.8 % (37.0-53.0); Hemoglobin 13.1 g/dL (13.5-17.5); IMMATURE GRAN ABSOLUTE AUTO 0.37 K/mm3 (0.00-0.10); IMMATURE GRAN PERCENT AUTO 4 % (0-1); LYMPHOCYTES ABSOLUTE AUTO 0.83 K/mm3 (0.84-5.20); LYMPHOCYTES PERCENT AUTO 10 % (21-46); MONOCYTES ABSOLUTE AUTO 0.78 K/mm3 (0.16-1.47); MONOCYTES PERCENT AUTO 9 % (4-13); Mean Corpuscular HGB 25.9 pg (26.0-34.0); Mean Corpuscular HGB Conc 32.1 g/dL (31.5-36.5); Mean Corpuscular Volume 81 fL (80-100); Mean Platelet Volume 8.6 fL (9.1-12.4); NEUTROPHILS ABSOLUTE AUTO 6.72 K/mm3 (1.96-9.15); NEUTROPHILS PERCENT AUTO 77 % (41-73); NRBC ABSOLUTE 0.02 K/mm3 (0.00-0.02); NRBC Auto 0.2 /100 WBC (0.0-0.2); Platelet Count 384 K/mm3 (150-400); RDW Standard Deviation 48.6 fL (35.1-46.3); Red Blood Cell Count 5.05 M/mm3 (4.30-5.90); White Blood Cell Count 8.74 K/mm3 (4.00-11.30)
--- NOTE | 2023-02-05 04:48 | NUR ---
SHIFT SUMMARY: A/Ox4 AND COOPERATIVE WITH CARE. ANSWERS QUESTIONS APPROPRIATELY AND ABLE TO MAKE HIS NEEDS KNOWN. NO ACUTE EVENTS OVERNIGHT FOR PT WAS ABLE TO SLEEP T/O MOST OF THE NIGHT. CARDIAC, REMAINS IN AFIB RHYTHM 110-120'S WITH NO REPORTS OF CP OR PRESSURE T/O THE NIGHT. OCCASIONAL JUMPS INTO THE 130's-140'S WITH EXERTION, BUT DOES NOT SUSTAIN WITH REST. ALSO PT REPORTS INTERMITTENT EPISODES OF DIZZINESS WHEN AMBULATING. SBP CONTINUES TO BE SOFT WITH SBP RANGING 90-100 S, BUT STABLE. RESPIRATORY, MAINTAINS SPO2 90-94% ON 2L VIA NC. REPORTS SOB WITH MODERATE EXERTION AND MUST REST FOR 1-2 MINUTES TO" CATCH HIS BREATH". IS COMPLIANT WITH CPAP USE AT NIGHT. SCHEDULED FOR THORACENTESIS THIS AM. GI/, ABLE TO INDEPENDENTLY VOID INTO URINAL DRAINING CLEAR/YELLOW URINE. NO BM OF THIS NOTE. CONTINUES TO REPORT INTERMITTENT PAIN THAT APPEARS SPORADICALLY THROUGHOUT PT'S BODY. PAIN MANAGED WELL WITH PRN PAIN MEDICATIONS. ASSESSED PT FOR RISKS OF ANY IGNITION SOURCES WELL BEHAVIORS FOR INCREASED RISKS OF FIRE DANGER. PT EDUCATED ON COMMON SOURCES OF IGNITION WELL NEED TO KEEP A SAFE ENVIRONMENT. PT VOICED UNDERSTANDING. NO NEW ORDERS AT THIS TIME, WILL REPORT TO ONCOMING RN. DANIELLE ALVAREZ OF THIS NOTE
[2023-02-05 05:15] LABS: Albumin, Blood 1.9 g/dL (3.4-5.0); Albumin/Globulin Ratio 0.5 (0.8-1.8); Bilirubin, Total 0.5 mg/dL (0.1-1.0); Bun/Creatinine Ratio 39.6 (12.0-20.0); Calcium, Blood 8.5 mg/dL (8.5-10.1); Creatinine, Blood 0.58 mg/dL (0.60-1.20); Globulin, Blood 4.1 g/dL (2.2-4.0); Potassium, Blood 3.7 mmol/L (3.5-5.5)
[2023-02-05 14:32] LABS: Automated BF RBC Count 0.005 M/mm3 (0-0); Automated BF WBC Count 1.299 K/mm3 (0-999)
[2023-02-05 14:35] LABS: Appearance, Body Fluid Hazy (Clear); Body Fluid WBC Count 1299 /mm3 (0-999); Color, Body Fluid Amber (None-Yellow); RBC Count, Body Fluid 5000 /mm3 (0-0)
[2023-02-05 15:12] LABS: pH, Body Fluid 7.9
[2023-02-05 15:13] LABS: Protein, Body Fluid 2.2 g/dL
[2023-02-05 15:15] LABS: Glucose, Body Fluid 259 mg/dL
[2023-02-05 15:17] LABS: Lactate Dehydrogenase, Body Fl 386 U/L
[2023-02-05 15:27] LABS: Total Cell Count, Body Fluid 100
--- NOTE | 2023-02-05 17:10 | NUR ---
SHIFT SUMMARY NO ACUTE CHANGES THIS SHIFT. PT A&OX4. A RANGE OF EMOTIONS TODAY WITH NEW DX OF CA. PT STATES HE FEELS "BLESSED" TO BE SURROUNDED BY LOVING PEOPLE. PT ALSO STATES, "I KNOW IM NOT GETTING OUT OF HERE". SP02>90% ON 2L NC. CPAP AT NOC. RT ATTEMPTED TO GET HOME CPAP FIXED, STATED IT WAS "". ENCOURAGED PT TO REQUEST NEW ON THROUGH PROVIDER PRIOR TO DISCHARGE. TELEMETRY SHOWED AFIB, HR 110'S-130'S. BP SOFT. LASIX HELD THIS AM D/T SOFT BP. SOFT BP AGAIN THIS EVENING. CALL PLACED TO MD GRAMAJO. MD GRAMAJO W/ ORDERS TO DC LASIX AND REASSESS NEED IN AM. PT C/O OF PAIN, MEDICATED VIA EMAR. PT DOWN FOR L THORACENTISIS THIS AFTERNOON. RADIOLOGY W/ REPORTS OF REMOVING 1200 MLS. PT USED URINAL TO VOID. NO BM TODAY BUT PT STATES WENT SEVERAL TIMES YESTERDAY. DOES NOT C/O OF CONSTIPATION BUT PT EDUCATED THAT PAIN MEDICATION MAY CAUSE THAT AND TO LET STAFF KNOW IF HE STARTS HAVING DIFFICULTY. PT CURRENTLY SITTING ON SIDE OF BED EATING DINNER. FAMILY AT BEDSIDE MOST OF DAY.
--- NOTE | 2023-02-05 20:36 | NUR ---
PATIENT RESTING IN BED WATCHING TV. C/O BACK PAIN REQUESTING TYLENOL. UP IN ROOM WITH MIN ASSIST. BIOX DOWN TO 87% AT TIMES OXYGEN INCREASED TO 4L/NC. BAND AID TO LEFT SIDE/BACK AREA CD&I. NO SWELLING OR BLEEDING.
--- NOTE | 2023-02-05 22:01 | NUR ---
GLUCOSE REMAINS ELEVATED. DOCTOR PATEL NOTIFIED AND ONE TIME HS DOSE OF SLIDING SCALE GIVE. PATIENT VERBALIZED GOOD PAIN CONTROL AT THIS TIME.
[2023-02-06 03:38] VITALS: BP 92/75
[2023-02-06 03:53] LABS: BASOPHILS ABSOLUTE AUTO 0.02 K/mm3 (0.00-0.23); BASOPHILS PERCENT AUTO 0 % (0-2); EOSINOPHILS ABSOLUTE AUTO 0.01 K/mm3 (0.00-0.68); EOSINOPHILS PERCENT AUTO 0 % (0-6); Hematocrit 38.5 % (37.0-53.0); Hemoglobin 12.4 g/dL (13.5-17.5); IMMATURE GRAN ABSOLUTE AUTO 0.18 K/mm3 (0.00-0.10); IMMATURE GRAN PERCENT AUTO 2 % (0-1); LYMPHOCYTES ABSOLUTE AUTO 0.79 K/mm3 (0.84-5.20); LYMPHOCYTES PERCENT AUTO 9 % (21-46); MONOCYTES ABSOLUTE AUTO 0.79 K/mm3 (0.16-1.47); MONOCYTES PERCENT AUTO 9 % (4-13); Mean Corpuscular HGB 25.8 pg (26.0-34.0); Mean Corpuscular HGB Conc 32.2 g/dL (31.5-36.5); Mean Corpuscular Volume 80 fL (80-100); Mean Platelet Volume 8.9 fL (9.1-12.4); NEUTROPHILS ABSOLUTE AUTO 6.97 K/mm3 (1.96-9.15); NEUTROPHILS PERCENT AUTO 80 % (41-73); NRBC ABSOLUTE 0.02 K/mm3 (0.00-0.02); NRBC Auto 0.2 /100 WBC (0.0-0.2); Platelet Count 366 K/mm3 (150-400); RDW Coefficient Variation 17.9 % (11.7-14.2); RDW Standard Deviation 48.2 fL (35.1-46.3); White Blood Cell Count 8.76 K/mm3 (4.00-11.30)
[2023-02-06 04:29] LABS: Albumin, Blood 1.8 g/dL (3.4-5.0); Albumin/Globulin Ratio 0.5 (0.8-1.8); Bilirubin, Total 0.5 mg/dL (0.1-1.0); Bun/Creatinine Ratio 50.8 (12.0-20.0); Calcium, Blood 8.3 mg/dL (8.5-10.1); Creatinine, Blood 0.43 mg/dL (0.60-1.20); Globulin, Blood 3.9 g/dL (2.2-4.0); Potassium, Blood 3.6 mmol/L (3.5-5.5); Total Protein, Blood 5.7 g/dL (6.4-8.2)
--- NOTE | 2023-02-06 05:51 | NUR ---
SUMMARY PATIENT SLEEPING WITH CPAP IN PLACE MOST OF NIGHT. WHEN AWAKE REQUIRING 4L/NC PLACED ON HIGH FLOW CANULA WITH HUMIDIFIER. PATIENT UP TO TOILET WITH MIN ASSIST. SLIGHT SOB WITH ACTIVITY. GOOD PAIN RELIEF WITH CURRENT TREATMENT. THORACENTESIS SITE REMAINS STABLE T/O NIGHT.
[2023-02-06] MEDS ORDERED: Amiodarone HCl200 MG PO (07:20)
[2023-02-06 07:29] VITALS: BP 110/68
[2023-02-06 11:53] VITALS: BP 103/74
[2023-02-06 17:18] VITALS: BP 97/69
--- NOTE | 2023-02-06 18:28 | NUR ---
SHIFT SUMMARY PT A/OX4 AND COOPERATIVE CARE. PT ABLE TO EXPRESS NEEDS AND CALLS APPROPIATE. PT BP'S SOFT, SEE CHARTS. OTHER VSS THROGUHOUT SHIFT WITH 02 SATS IN THE 90'S ON 4L NC. NO REPORT OF CHEST PAIN/PRESSURE THROUGHOUT SHIFT. PT USED URINAL AT BEDSIDE, TOLERATED WELL. PT CONTINUED ON FLUID RESTRICTION, REQUESTED ICCE CHIPS DURING SHIFT. PT REMAINED AFIB 100-130'S. [facility] SITE C/D/I. PT TO BE NPO AFTER MIDNIGHT FOR BIOPSY IN THE AM.
[2023-02-06 20:58] VITALS: BP 102/70
[2023-02-06 23:54] VITALS: BP 103/68
[2023-02-07] VITALS (7 sets, daily range): BP systolic 86–109; BP diastolic 62–75
[2023-02-07 04:01] LABS: BASOPHILS ABSOLUTE AUTO 0.03 K/mm3 (0.00-0.23); BASOPHILS PERCENT AUTO 0 % (0-2); EOSINOPHILS ABSOLUTE AUTO 0.01 K/mm3 (0.00-0.68); EOSINOPHILS PERCENT AUTO 0 % (0-6); Hematocrit 40.3 % (37.0-53.0); Hemoglobin 12.7 g/dL (13.5-17.5); IMMATURE GRAN PERCENT AUTO 2 % (0-1); LYMPHOCYTES ABSOLUTE AUTO 0.93 K/mm3 (0.84-5.20); LYMPHOCYTES PERCENT AUTO 9 % (21-46); MONOCYTES ABSOLUTE AUTO 0.98 K/mm3 (0.16-1.47); MONOCYTES PERCENT AUTO 10 % (4-13); Mean Corpuscular HGB 25.7 pg (26.0-34.0); Mean Corpuscular HGB Conc 31.5 g/dL (31.5-36.5); Mean Corpuscular Volume 82 fL (80-100); Mean Platelet Volume 9.1 fL (9.1-12.4); NEUTROPHILS ABSOLUTE AUTO 7.78 K/mm3 (1.96-9.15); NEUTROPHILS PERCENT AUTO 78 % (41-73); NRBC ABSOLUTE 0.03 K/mm3 (0.00-0.02); NRBC Auto 0.3 /100 WBC (0.0-0.2); Platelet Count 378 K/mm3 (150-400); RDW Coefficient Variation 18.1 % (11.7-14.2); Red Blood Cell Count 4.94 M/mm3 (4.30-5.90); White Blood Cell Count 9.93 K/mm3 (4.00-11.30)
[2023-02-07 04:32] LABS: Magnesium, Blood 2.3 mg/dL (1.6-2.4)
[2023-02-07 04:50] LABS: Albumin, Blood 1.8 g/dL (3.4-5.0); Albumin/Globulin Ratio 0.5 (0.8-1.8); Bilirubin, Total 0.4 mg/dL (0.1-1.0); Bun/Creatinine Ratio 46.1 (12.0-20.0); Calcium, Blood 8.2 mg/dL (8.5-10.1); Creatinine, Blood 0.63 mg/dL (0.60-1.20); Globulin, Blood 3.9 g/dL (2.2-4.0); Potassium, Blood 4.3 mmol/L (3.5-5.5); Total Protein, Blood 5.7 g/dL (6.4-8.2)
--- NOTE | 2023-02-07 06:41 | NUR ---
SHIFT SUMMARY PATIENT ALERT AND ORIENTED X4. MEDICATED PER EMAR FOR PAIN. HAS BEEN NPO SINCE MIDNIGHT FOR BIOPSY. HAD NO COMPLAINTS OF SHORTNESS OF BREATH. CONTINUES ON 4 LITERS O2 VIA NC, WORE CPAP OVERNIGHT. VITAL SIGNS STABLE, AFIB 110-120'S ON TELE. NO ACUTE ISSUES NOTED OVERNIGHT. WILL CONTINUE TO MONITOR. CALL LIGHT WITHIN REACH.
--- NOTE | 2023-02-07 18:19 | NUR ---
PT DOWN TO PROCEDURE AT 1700 VIA HOSPITAL BED AND ON 3L NC. PT REURNED TO PCU AT 1748. BIOPSY SITE OF RIGHT UPPER ABD WITH BANDAGE IN PLACE AND C/D/I. PT SLIGHTLY LETHARGIC AT TIME OF ARRIVAL AND INSTRUCTED NOT TO HAVE ANYTHING BY MOUTH UNTIL HE IS MORE ALERT, PT AND PT FAMILY MEMBER AGREED.
--- NOTE | 2023-02-07 18:22 | NUR ---
SHIFT SUMMARY PT A/OX 4 AND COOPERAIVE OF CARE. PT ABLE TO EXPRESS NEEDS AND CALLS APPROPIATE. PT SBP'S SOFT DURING SHIFT, MD NOTIFIED AND MIDODRINE ORDERED. OTHER VSS THROUGHOUT SHIFT WITH O2 SATS IN KEENA 90'S ON 4L NC. NO REPORT OF CHEST PAIN/PRESSURE THROUGHOUT SHIFT. NO REPORT OF SOB/DYSPNEA THROUGHOUT SHIFT. PT INDEPENDENT IN BED AND SBA IN WHEN UP IN ROOM, TOLORATED WELL. PT HAD BIOPSY DONE TODAY, RIGHT UPPER ABD SITE C/D/I.
--- NOTE | 2023-02-07 19:30 | NUR ---
ASSUMED CARE PT SITTING UP AT BEDSIDE; SISTER AT BEDSIDE. SPOT CHECKING PT'S OXYGEN D/T DIFFICULTY GETTING ACCURATE PLETH/READING. IN NO ACUTE DISTRESS. DENIES CP, SOB, AND NAUSEA.
[2023-02-08] VITALS (7 sets, daily range): BP systolic 90–118; BP diastolic 63–90
[2023-02-08 04:24] LABS: BASOPHILS ABSOLUTE AUTO 0.02 K/mm3 (0.00-0.23); BASOPHILS PERCENT AUTO 0 % (0-2); EOSINOPHILS ABSOLUTE AUTO 0.01 K/mm3 (0.00-0.68); EOSINOPHILS PERCENT AUTO 0 % (0-6); Hematocrit 39.9 % (37.0-53.0); Hemoglobin 12.7 g/dL (13.5-17.5); IMMATURE GRAN ABSOLUTE AUTO 0.15 K/mm3 (0.00-0.10); IMMATURE GRAN PERCENT AUTO 2 % (0-1); LYMPHOCYTES ABSOLUTE AUTO 0.63 K/mm3 (0.84-5.20); LYMPHOCYTES PERCENT AUTO 9 % (21-46); MONOCYTES ABSOLUTE AUTO 0.62 K/mm3 (0.16-1.47); MONOCYTES PERCENT AUTO 9 % (4-13); Mean Corpuscular HGB 25.6 pg (26.0-34.0); Mean Corpuscular HGB Conc 31.8 g/dL (31.5-36.5); Mean Corpuscular Volume 80 fL (80-100); Mean Platelet Volume 8.9 fL (9.1-12.4); NEUTROPHILS ABSOLUTE AUTO 5.57 K/mm3 (1.96-9.15); NEUTROPHILS PERCENT AUTO 80 % (41-73); NRBC ABSOLUTE 0.04 K/mm3 (0.00-0.02); NRBC Auto 0.6 /100 WBC (0.0-0.2); Platelet Count 372 K/mm3 (150-400); RDW Coefficient Variation 18.1 % (11.7-14.2); RDW Standard Deviation 49.3 fL (35.1-46.3); Red Blood Cell Count 4.96 M/mm3 (4.30-5.90)
[2023-02-08 05:07] LABS: Magnesium, Blood 2.4 mg/dL (1.6-2.4)
[2023-02-08 05:28] LABS: Albumin, Blood 1.7 g/dL (3.4-5.0); Albumin/Globulin Ratio 0.4 (0.8-1.8); Bilirubin, Total 0.4 mg/dL (0.1-1.0); Bun/Creatinine Ratio 48.6 (12.0-20.0); Calcium, Blood 8.2 mg/dL (8.5-10.1); Creatinine, Blood 0.54 mg/dL (0.60-1.20); Globulin, Blood 3.8 g/dL (2.2-4.0); Phosphorus, Blood 3.9 mg/dL (2.5-4.9); Potassium, Blood 3.7 mmol/L (3.5-5.5); Total Protein, Blood 5.5 g/dL (6.4-8.2)
--- NOTE | 2023-02-08 05:49 | NUR ---
SHIFT SUMMARY PT RESTED/SLEPT QUIETLY FOR MOST OF NIGHT. PT WOKE ONE TIME DURING NIGHT FOR PRN PAIN MEDICATION. STATES "I'M FEELIN OK". PAIN MANAGEMENT PER EMAR APPEARS TO BE MANAGING PAIN ADEQUATELY PER PT. DIFFICULTY GETTING AN ACCURATE PULSE OX READING T/O NIGHT. PT HAS COLD EXTREMITIES, BUT DECLINES BLANKETS; STATES "I GREW UP OUTDOORS", ETC. NO ACUTE EVENTS OVERNIGHT.
--- NOTE | 2023-02-08 09:12 | NUR ---
AM NOTE: PATIENT ALERT AND ORIENTED X4. VERY PLEASENT AND COOPERATIVE WITH CARES. SOFT SPOKEN AND TEARFUL AT TIMES WITH NEW DIAGNOSIS. THIS RN DISCUSSED EMOTION AND PROVIDED SUPPORT FOR PATIENT THIS AM. DENIES NUMBNESS/TINGLING. COMPLAINS OF 4-5/10 PAIN TO LOWER BACK AND LEFT HIP. PATIENT STATES PAIN IS IMPROVED FROM YESTERDAY. MEDICATED PER EMAR THIS AM. PERRLA. UP IND/SBA TO BATHROOM. SHOWER COMPLETED THIS AM. TELE SHOWING AFIB WITH HR 100-120'S. DENIES CHEST PAIN/PRESSURE/PALPITATIONS. SBP 115. PPP. BLE EDEMA. DR. PETERSON BY THIS AM. ORDERS FOR PATIENT TO RESTART PO XERALTO 20 MG DAILY, DISCONTINUE SC LOVENOX, INCREASE METOPROLOL XL TO 150 MG PO BID, AND TO INCREASE MIDODRINE TO 10 MG PO TIDD. ORDERS IN PLACE, DR. PETERSON AT BEDSIDE TO REVIEW NEW ORDERS PLACED BY THIS RN. IV FLUSHED AND SALINE LOCKED. ON 4L NASAL CANNULA SATING LOW-MID 90'S. LUNGS SOUNDING CLEAR AND DIM IN BASES. DENIES SOB. EVEN AND UNLABORED RESPIRATIONS. CPAP AT BEDSIDE ON STANDBY FOR PATIENT DURING NOC/NAPS. EATING AND VOIDING WNL. BOWEL TONES PRESENT. PATIENT STATES HE IS FINDING FOOD HE DID NOT LIKE MUCH PRIOR TO THIS HOSPITAL STAY MORE APPEALING NOW. ACHS BLOOD SUGARS. BLOOD SUGAR READING 203 THIS AM, COVERED WITH INSULIN PER EMAR. USING URINAL AT BEDSIDE WELL UP TO BATHROOM. FLUID RESTRICTION IN PLACE. LEFT LOWER BACK WITH THORACENTESIS SITE. SITE WNL. SKIN OVERALL C/D/I. FEET AND HANDS COLD, PATIENT DENIES NEED FOR WARM BLANKET. PATIENT SITTING UP IN CHAIR, WATCHING TV, DENIES NEEDS. CALL LIGHT IN REACH.
--- NOTE | 2023-02-08 17:28 | NUR ---
SHIFT SUMMARY: NO ACUTE CHANGES. SEE PREVIOUS NOTE. PATIENT REMAINS AFIB WITH HR 100-110'S. SBP 90-110'S. DENIES CHEST PAIN/PRESSURE. ON 2-4L NASAL CANNULA SATING MID 90'S. DENIES SOB. EATING AND VOIDING WNL. MANY VISITORS TO BEDSIDE THIS SHIFT. MEDICATED PER EMAR FOR PAIN. PATIENT TAKING SHORT NAPS THIS AFTERNOON IN BETWEEN VISITORS. AC BLOOD SUGARS. PATIENT IND WITH TURNS IN BED. USING CALL LIGHT FOR NEEDS. DENIES NEEDS AT THIS TIME.
--- NOTE | 2023-02-08 17:50 | NUR ---
Spiritual Care Visit. Pt. is resting in bed but responds when I enter the room. Pt. is pleasant and welcomes the visit. Pt. is unsettled about his spiritual life. Listened with empathy and a calming presence. Considered matters of edita, belief, and purpose. Pt. displayed moments of peace and mirela as we reflected together. Prayed with Pt. Pt. requested I communicate with a couple of his friends. Pt. verbalized gratitude for the spiritual care visit.
[2023-02-09 04:05] VITALS: BP 94/65
[2023-02-09 04:12] LABS: BASOPHILS ABSOLUTE AUTO 0.03 K/mm3 (0.00-0.23); BASOPHILS PERCENT AUTO 0 % (0-2); EOSINOPHILS ABSOLUTE AUTO 0.01 K/mm3 (0.00-0.68); EOSINOPHILS PERCENT AUTO 0 % (0-6); Hematocrit 42.1 % (37.0-53.0); Hemoglobin 13.2 g/dL (13.5-17.5); IMMATURE GRAN PERCENT AUTO 2 % (0-1); LYMPHOCYTES ABSOLUTE AUTO 1.02 K/mm3 (0.84-5.20); LYMPHOCYTES PERCENT AUTO 11 % (21-46); MONOCYTES ABSOLUTE AUTO 0.88 K/mm3 (0.16-1.47); MONOCYTES PERCENT AUTO 10 % (4-13); Mean Corpuscular HGB 25.8 pg (26.0-34.0); Mean Corpuscular HGB Conc 31.4 g/dL (31.5-36.5); Mean Corpuscular Volume 82 fL (80-100); Mean Platelet Volume 9.2 fL (9.1-12.4); NEUTROPHILS ABSOLUTE AUTO 7.12 K/mm3 (1.96-9.15); NEUTROPHILS PERCENT AUTO 77 % (41-73); NRBC ABSOLUTE 0.04 K/mm3 (0.00-0.02); NRBC Auto 0.4 /100 WBC (0.0-0.2); Platelet Count 338 K/mm3 (150-400); RDW Coefficient Variation 18.5 % (11.7-14.2); RDW Standard Deviation 50.7 fL (35.1-46.3); Red Blood Cell Count 5.12 M/mm3 (4.30-5.90); White Blood Cell Count 9.26 K/mm3 (4.00-11.30)
[2023-02-09 04:42] LABS: Magnesium, Blood 2.3 mg/dL (1.6-2.4)
[2023-02-09 04:43] LABS: Albumin, Blood 1.8 g/dL (3.4-5.0); Anion Gap 6 mmol/L (6-16); Blood Urea Nitrogen 26 mg/dL (8-24); CO2, Blood 31 mmol/L (21-32); Calcium, Blood 7.9 mg/dL (8.5-10.1); Chloride, Blood 100 mmol/L (98-108); Creatinine, Blood 0.61 mg/dL (0.60-1.20); Glomerular Filtration Rate 106 (60-); Glucose, Blood 195 mg/dL (70-99); Potassium, Blood 4.3 mmol/L (3.5-5.5); Sodium, Blood 137 mmol/L (136-145)
--- NOTE | 2023-02-09 06:13 | NUR ---
SHIFT SUMMARY PATIENT ALERT AND ORIENTED X4. MEDICATED PER EMAR FOR PAIN. PATIENT DENIED HAVING SHORTNESS OF BREATH. WAS ON 3 LITERS O2 VIA NASAL CANULA WITH SPO2 >90%, CPAP TO SLEEP. SYSTOLIC BLOOD PRESSURE 94-100'S, MAP >65. DENIES CHEST PAIN. NO ACUTE ISSUES NOTED OVERNIGHT. WILL CONTINUE TO MONITOR. CALL LIGHT WITHIN REACH.
[2023-02-09 08:05] VITALS: BP 102/74
--- NOTE | 2023-02-09 11:28 | NUR ---
AM NOTE: PATIENT ALERT AND ORIENTED X4. NO NEW CHANGES FROM YESTERDAY SHIFT. SEE PREVIOUS NOTES. PATIENT COMPLAINS OF 8/10 PAIN THIS AM, MEDICTED PER EMAR. TELE CONTINUES TO SHOW AFIB WITH HR 90-120'S. PO MEDICATIONS GIVEN THIS AM. BP STABLE. EATING AND VOIDING WNL. DR. PETERSON BY THIS AM. AFTERNOON BLOOD SUGAR ELEVATED TO 391. DR. PETERSON ORDERS FOR 5 UNITS OF INSULIN LISPRO IN ADDITION TO CURRENT SLIDING SCALE COVERAGE SCHEDULE PRIOR TO ALL MEALS. ORDERS IN PLACE. PLAN TO RETAKE BLOOD SUGAR AT [address] PETERSON ON RESULTS. ON ROOM AIR SATING ABOVE 95%. EVEN AND UNLABORED RESPIRATIONS. CALL LIGHT IN REACH. DENIES NEEDS AT THIS TIME.
[2023-02-09 11:40] VITALS: BP 96/82
[2023-02-09 13:11] VITALS: BP 95/74
--- NOTE | 2023-02-09 18:01 | NUR ---
SHIFT SUMMARY: NO ACUTE CHANGES. PAIN MANAGED THROUGHOUT THE DAY WITH SCHEDULED AND PRN MEDICATIONS. REMAINS AFIB WITH HR 100-110'S. SBP 90-100'S. DENIES CHEST PAIN/PRESSURE. ON ROOM AIR WHEN AWAKE. NEEDING UP TO 2L DURING ONE NAP WHEN NOT WANTING TO WEAR CPAP. HOME O2 EVAL ORDERS IN PLACE PENDING DISCHARGE TOMORROW. EATING AND VOIDING WNL. ACHS BLOOD SUGARS WITH COVERAGE. THIS RN PROVIDED INSULIN ADMINISTRATION AND BLOOD SUGAR EDUCATION THROUGHOUT DAY, PATIENT ABLE TO TEACH BACK INSULIN PEN INSTRUCTIONS WITH EACH ADMINISTRATION. SISTER AND OTHER VISITORS AT BEDSIDE THROUGHOUT SHIFT.
[2023-02-10 03:41] VITALS: BP 92/77
[2023-02-10 07:46] VITALS: BP 108/83
[2023-02-10 12:11] VITALS: BP 86/68
[2023-02-10] MEDS ORDERED: METO50ER PO (12:43)
[2023-02-10] MEDS ORDERED: ACET500 PO (12:44)
[2023-02-10] MEDS ORDERED: DECADRON4 M1 PO (12:45)
[2023-02-10] MEDS ORDERED: FAMO20 PO (12:45)
[2023-02-10] MEDS ORDERED: BUME1 PO (12:45)
[2023-02-10] MEDS ORDERED: INSULANPEN SC (12:47)
[2023-02-10] MEDS ORDERED: HUMALOG KW100 UNIT/1 SC ×2 (12:49→12:51)
[2023-02-10] MEDS ORDERED: MIDO5 PO (12:52)
[2023-02-10] MEDS ORDERED: MS Contin15 MG PO (12:53)
[2023-02-10] MEDS ORDERED: ONDA4ODT MM (12:54)
[2023-02-10] MEDS ORDERED: OXYC10TA19 PO (12:55)
[2023-02-10 13:46] VITALS: BP 102/76
[2023-02-10 16:06] VITALS: BP 96/68
--- NOTE | 2023-02-10 17:15 | NUR ---
Spiritual care visit conducted. Long visit discussing and dying, his support system, his edita and his goals. I provide theological insights, encouragement, recitation of scripture and prayer. Patient responded well and showed signs of greater peace.
--- NOTE | 2023-02-10 17:53 | NUR ---
PT DISCHARGE TO HOME TODAY. PT WAS INSTRUCTED HOME INSULIN USE, PT ABLE TO DEMONSTRATE. ALL NEW MEDICATIONS AND INSTRUCTIONS DISCLOSED WITH THE PT AND THE SIGNIFICANT OTHER, BOTH VERBALIZED UNDERSTANDING. PRESCRIPTION SENT TO [facility] PROVIDED HARD SCRIPTS FOR NARCOTICS. SIGNIFICANT OTHER ABLE TO DISPLAY AND BANNER DESIGNER PRESCRIPTIONS. PT REQUIRING 3L OF O2 AT REST AND WITH ACTIVITY PER HOME O2 EVALDavid FRANK ABLE TO DELIVER SMAL O2 TANK. PT HAS BEEN AMBULATING TO THE BATHROOM INDEPENDENTLY. PAIN CONTROLLED BY PAIN MEDS, VITALS HAS BEEN STABLE. ALL BELONGINGS SENT WITH THE PT, ACCOMPANIED VIA WHEELCHAIR FOR TRANSPORT
== END 2023-02-10 17:42 | disposition home health service (06) | DRG 291 ==
LOC: ER 15:56 → PCU 15:57
PROVIDERS: Emergency Medicine; Family Medicine; Internal Medicine; Nurse Practitioner Acute Care; Student in an Organized Health Care Education/Training Program; ADMIT Student in an Organized Health Care Education/Training Program
PROC: 0W9B3ZX Drainage of Left Pleural Cavity, Percutaneous Approach, Diagnostic (ICD-10-PCS; principal; 2023-02-05)
PROC: 0FB23ZX Excision of Left Lobe Liver, Percutaneous Approach, Diagnostic (ICD-10-PCS; 2023-02-07)
DX: I11.0 Hypertensive heart disease with heart failure (principal); I50.31 Acute diastolic (congestive) heart failure; J96.01 Acute respiratory failure with hypoxia; I48.21 Permanent atrial fibrillation; I31.31 Malignant pericardial effusion in diseases classified elsewhere; C78.7 Secondary malignant neoplasm of liver and intrahepatic bile duct; C77.3 Secondary and unspecified malignant neoplasm of axilla and upper limb lymph nodes; C79.51 Secondary malignant neoplasm of bone; C78.6 Secondary malignant neoplasm of retroperitoneum and peritoneum; C34.90 Malignant neoplasm of unspecified part of unspecified bronchus or lung; G47.33 Obstructive sleep apnea (adult) (pediatric); F32.A Depression, unspecified; G89.3 Neoplasm related pain (acute) (chronic); E66.3 Overweight; E78.5 Hyperlipidemia, unspecified; E11.65 Type 2 diabetes mellitus with hyperglycemia; I42.9 Cardiomyopathy, unspecified; G89.4 Chronic pain syndrome; Z79.01 Long term (current) use of anticoagulants; Z88.8 Allergy status to other drugs, medicaments and biological substances; Z79.84 Long term (current) use of oral hypoglycemic drugs; Z79.85 Long-term (current) use of injectable non-insulin antidiabetic drugs; Z87.891 Personal history of nicotine dependence; Z68.29 Body mass index [BMI] 29.0-29.9, adult; Z11.52 Encounter for screening for COVID-19
CPT/HCPCS: 0241U; 32555; 36415; 71045; 71046; 71260; 74177; 76705; 76937; 80048; 80053; 80069; 82105; 82803; 82945; 82947; 82977; 83615; 83735; 83880; 83986; 84100; 84145; 84153; 84155; 84157; 84443; 84484; 85025; 85027; 85610; 85730; 86304; 87070; 87205; 88108; 88305; 88307; 88341; 88342; 89051; 93005; 93010; 94660; 94760; 94761; 94762; 96374; 96375; 99152; 99153; 99285-25; A9270; J1170; J1650; J1815; J1940; J2250; J3010; J7030; Q9967

== ENCOUNTER 2023-02-19 07:26 | Observation (INO) | payer OTHER, MEDICARE ==
[~2023-02-19] VITALS: Ht 185.4 cm; Wt 90.7 kg
[~2023-02-19 07:26] MED LIST changes: +ACET500 PO; +BUME1 PO; +DECADRON4 M1 PO; +FAMO20 PO; +HUMALOG KW100 UNIT/1 SC; +INSULANPEN SC; +METO50ER PO; +MIDO5 PO; +MS Contin15 MG PO; +ONDA4ODT MM; +OXYC10TA19 PO; +SPIR25 PO
[2023-02-19 07:35] VITALS: BP 106/79
--- NOTE | 2023-02-19 16:53 | NUR ---
COMFORT CARE SHIFT SUMMARY PATIENT IS A RECENT ADMIT FROM ED FOR COMFORT CARE. PATIENT HAS LUNG CANCER. PATIENT HAS BEEN MEDICATED TWICE THIS SHIFT FOR LABORED BREATHING AND PAIN, MEDICATED PER EMAR. PATIENT HAS NOT COMPLAINED OF NAUSEA OR VOMITTING. FAMILY HAS BEEN WITH PATIENT ALL SHIFT SINCE ARRIVING ON MEDICAL FLOOR.
--- NOTE | 2023-02-20 06:44 | NUR ---
SHIFT SUMMARY: PT IS ADMITTED FOR COMFORT MEASURES AND IS A DNR. IS ALERT AND ABLE TO MAKE SOME NEEDS KNOWN. WAS A 1P MIN-MOD THROUGH MOST OF THE SHIFT. DENIES PAIN OR DISCOMFORT WHEN ASKED. BUT WAS GIVEN PRN ROXANOL ABOUT EVERY 90MIN FOR AIR HUNGER SX. FOLLY IN PLACE AND DRAINING CLEAR YELLOW URINE. FAMILY AT BEDSIDE THROUGH NIGHT.
--- NOTE | 2023-02-20 16:27 | NUR ---
Spiritual care visit conducted. Patient is lying in bed and minimally responsive. Lisette, pt's sister, is bedside. Lengthy visit with Lisette as she gives a life review of patient and talks about him and his amazing character attributes along with his deep struggles; all from her perspective. Lisette has a very strong Jewish edita and has been a positive support in the patient's life and he has been a protective and loving brother to her. I wake the patient up upon her permission and provide encouragement and prayer. Patient struggles to stay alert but refuses to stop trying until given permission to rest again. He nods with great approval after the prayer. I will continue to remain available to patient and family.
--- NOTE | 2023-02-20 16:44 | NUR ---
COMFORT CARE SHIFT SUMMARY PATIENT HAS BEEN MOSTLY UNRESPONSIVE. PATIENT HAS SHOWN SIGNS OF PAIN. PATIENT HAS BEEN MEDICATED PER EMAR FOR PAIN. FENTNYL PATCH HAS BEEN PLACED FOR PAIN MANAGEMENT. PATIENTS FAMILY HAS BEEN AT BEDSIDE MOST OF DAY. BED IN LOCKED AND LOWEST POSITION. CALL LIGHT IN PLACE.
--- NOTE | 2023-02-21 01:55 | NUR ---
PT CLEMENTINE CALLED @ [id number]. GIRLFRIEND WAS PRESENT IN ROOM AT TOD. POST MORTEM CARE DONE TO INCLUDE AHN REMOVAL AND REMOVAL OF WATCH. PERSONAL ITEMS GIVEN TO GIRLFRIEND. FAMILY NOTIFIED BY GIRLFRIEND AND CHOSE NOT TO COME IN. HOME NOTIFIED.
--- NOTE | 2023-02-21 10:06 | NUR ---
Report provided from [email or web address] RN pt last pm. [facility] at bedside this am. Tyler Queen from [facility] at bedside to transfer pt to home. Emely DAVIS made aware to complete discharge summary.
== END 2023-02-20 23:30 ==
LOC: ER 07:26 → MEDS 07:27
PROVIDERS: ADMIT Internal Medicine
DX: J96.01 Acute respiratory failure with hypoxia (principal); Z51.5 Encounter for palliative care; C80.1 Malignant (primary) neoplasm, unspecified; I48.91 Unspecified atrial fibrillation; I50.33 Acute on chronic diastolic (congestive) heart failure; I95.9 Hypotension, unspecified; E11.9 Type 2 diabetes mellitus without complications; E78.5 Hyperlipidemia, unspecified; I11.0 Hypertensive heart disease with heart failure; G89.4 Chronic pain syndrome; Z66 Do not resuscitate; J91.0 Malignant pleural effusion
CPT/HCPCS: 51702; 93005; 93010; 96374-59; 99285-25; A9270; G0378